=== PATIENT | male | born 2000 | race Caucasian/White ===

== ENCOUNTER 2024-08-10 12:08 | Emergency (ER) | payer OTHER, SELFPAY ==
[2024-08-10 12:13] VITALS: BP 136/83; PULSE 90; RESP 18; TEMP 36.6; O2SAT 100
--- NOTE | 2024-08-10 13:01 | ED.GENADULT ---
HPI - General Adult General Chief complaint: Skin/Abscess/Foreign Body Stated complaint: burn to wrist Time Seen by Provider: 08/10/24 12:19 History of Present Illness HPI narrative: 24-year-old male presents emergency department for evaluation for a right wrist burn that occurred approximately 3 days ago. 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 Related Data Allergies Allergy/AdvReac Type Severity Reaction Status Date / Time No Known Allergies Allergy Verified 08/10/24 12:34 Review of Systems Review of Systems: All systems reviewed & are unremarkable except as noted in HPI and below Exam Narrative: APPEARANCE: Well appearing, no pain, no distress, well-nourished. HEAD: normocephalic, atraumatic. EYES: PERRLA/EOMI, conjunctivae clear. NOSE: Normal no drainage EARS:TMS clear with good light reflex. THROAT: Pharynx clear, no exudate. NECK: Supple. No adenopathy, no masses. RESPIRATORY: Airway patent, respirations nonlabored. Clear to auscultation bilaterally, no rales, rhonchi, wheezing. CARDIOVASCULAR: Regular rate and rhythm without murmurs rubs or gallops. ABDOMINAL: Soft, nontender, nondistended, normal bowel sounds MUSCULOSKELETAL: Moves all extremities. Strength/ROM intact, No edema, No calf tenderness. NEURO: Alert. Cranial nerves II through XII intact. Grossly intact SKIN: Healing burn to right wrist with 1 small blister Course Vital Signs Vital signs: Vital Signs Temperature 97.9 F 08/10/24 12:13 Pulse Rate 90 08/10/24 12:13 Respiratory Rate 18 08/10/24 12:13 Blood Pressure 136/83 08/10/24 12:13 Pulse Oximetry 100 08/10/24 12:13 Temperature 97.9 F 08/10/24 12:13 Pulse Rate 90 08/10/24 12:13 Respiratory Rate 18 08/10/24 12:13 Blood Pressure 136/83 08/10/24 12:13 Pulse Oximetry 100 08/10/24 12:13 Medical Decision Making [facility] Narrative Medical decision making narrative: Wound was cleansed and dressed with antibiotic ointment and sterile gauze. Patient was updated on wound care. Patient's tetanus is up-to-date. Differential Diagnosis Differential Diagnosis: Cellulitis, first-degree burn, second-degree burn Vital Signs Vital Signs: Vital Signs Temperature 97.9 F 08/10/24 12:13 Pulse Rate 90 08/10/24 12:13 Respiratory Rate 18 08/10/24 12:13 Blood Pressure 136/83 08/10/24 12:13 Pulse Oximetry 100 08/10/24 12:13 Temperature 97.9 F 08/10/24 12:13 Pulse Rate 90 08/10/24 12:13 Respiratory Rate 18 08/10/24 12:13 Blood Pressure 136/83 08/10/24 12:13 Pulse Oximetry 100 08/10/24 12:13 Discharge Plan Discharge Clinical Impression: Burn Patient Disposition: Home, Self-Care Condition: Stable Instructions: Antibiotic Form, Second-Degree Burn (ED) Additional Instructions: Antibiotic ointment and wound care as directed. Have close follow-up with your primary care physician. Patient Language: Turkmen Follow-up/Referrals: Deonte Dowling MD [Primary Care Provider] -
== END 2024-08-10 13:15 | disposition home or self-care (01) ==
PROVIDERS: Emergency Provider Emergency Medicine; PCP Family Medicine
DX: T23.271A Burn of second degree of right wrist, initial encounter (principal); T31.0 Burns involving less than 10% of body surface; X10.2XXA Contact with fats and cooking oils, initial encounter; Y93.G1 Activity, food preparation and clean up
CPT/HCPCS: 16020; 99282